=== PATIENT | male | born 1975 | race Caucasian/White ===

== ENCOUNTER 2017-12-21 11:53 | Emergency (ER) | payer SELFPAY ==
[2017-12-21] MEDS ORDERED: traMADol 50 MG Tab PO ONE (12:26)
--- NOTE | 2017-12-21 12:30 | EDM.PDOC ---
ED HPI GENERAL MEDICAL PROBLEM - General Chief Complaint: Lower Extremity Injury/Pain Stated Complaint: LEFT ANKLE PAIN Time Seen by Provider: 12/21/17 11:54 Source of Information: Reports: Patient History Limitations: Reports: No Limitations - History of Present Illness INITIAL COMMENTS - FREE TEXT/NARRATIVE: HISTORY AND PHYSICAL: History of present illness: Patient is a 42-year-old male who presents to the emergency room today with complaints of left lateral ankle pain. 2 days ago the patient states he was getting out of his truck and had stepped out of the cab wrong. He rolled his left ankle which has been increasingly bothersome. 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 He states he has had a fracture of the left ankle 3 times previous. He states he does routinely roll and twist the ankle which requires him to rest and elevated, stating "it usually goes away after 2 days of doing this". He requested to his employer that he could take today and tomorrow off to rest the extremity, employer denied request. Review of systems: As per history of present illness and below otherwise all systems reviewed and negative. Past medical history: As per history of present illness and as reviewed below otherwise noncontributory. Surgical history: As per history of present illness and as reviewed below otherwise noncontributory. Social history: No reported history of drug or alcohol abuse. Family history: As per history of present illness and as reviewed below otherwise noncontributory. Physical exam: General: Well-developed and well-nourished 42-year-old male. Alert and oriented. Nontoxic appearing and in no acute distress. HEENT: Atraumatic, normocephalic, pupils equal and reactive bilaterally, negative for conjunctival pallor or scleral icterus, mucous membranes moist, throat clear, neck supple, nontender, trachea midline. No drooling or trismus noted. No meningeal signs Lungs: Clear to auscultation, breath sounds equal bilaterally, chest nontender. Heart: S1S2, regular rate and rhythm without overt murmur Abdomen: Soft, nondistended, nontender. Negative for masses or hepatosplenomegaly. Negative for costovertebral tenderness. Pelvis: Stable nontender. Genitourinary: Deferred. Rectal: Deferred. Skin: No erythema or open skin. Intact, warm, dry. No lesions or rashes noted. Extremities: Mild tenderness to the lateral malleolus with soft tissue swelling , negative for cords or calf pain. Neurovascular unremarkable. Neuro: Awake, alert, oriented. Cranial nerves II through XII unremarkable. Cerebellum unremarkable. Motor and sensory unremarkable throughout. Exam nonfocal. Notes: X-ray shows no dislocation or fracture. Due to the multiple previous injuries of the affected extremity would like him to follow-up with the orthopedic provider. We'll place him in a stirrup splint with crutches. Supportive care measures were reviewed and discussed. He voices understanding and is agreeable to plan of care. Denies any further questions or concerns at this time. Diagnostics: Left ankle x-ray Therapeutics: Ice, Stirrup Splint, Crutches Prescription: Diclofenac Impression: Left ankle injury Plan: 1. Rest, ice, elevate the affected extremity. Please use the splint and crutches as directed. 2. Tylenol as needed for pain. Diclofenac as directed. Please take with food. Do not take any additional NSAID such as ibuprofen or Aleve for taking this medication. 3. May return to work on 12/23/17 without restrictions. 4. Follow-up with your primary care provider or orthopedic provider next week. Return to ED as needed and as discussed. Definitive disposition and diagnosis as appropriate pending reevaluation and review of above. Duration: Day(s): Left Ankle Pain Score (Numeric/FACES): 6 - Related Data Allergies Allergy/AdvReac Type Severity Reaction Status Date / Time No Known Allergies Allergy Verified 12/21/17 12:27 Home Meds: Home Meds Aspirin 81 mg PO DAILY 12/21/17 [History] Diclofenac Sodium [Voltaren] 75 mg PO BIDMEALS PRN #20 tab.cr 12/21/17 [Rx] metFORMIN [Glucophage XR] 500 mg PO DAILY 12/21/17 [History] Review of Systems - Review of Systems Review Of Systems: ROS reveals no pertinent complaints other than HPI. ED EXAM, GENERAL - Physical Exam Exam: See Below (See dictation) Course - Vital Signs Last Recorded V/S: Last Vital Signs Temp 207.5 F H 12/21/17 12:19 Pulse 76 12/21/17 12:19 Resp 19 12/21/17 12:19 BP 154/90 H 12/21/17 12:19 Pulse Ox 93 L 12/21/17 12:19 - Orders/Labs/Meds Orders: Active Orders 24 hr Category Date Time Status Ankle Min 3V Lt [CR] Stat Exams 12/21/17 11:54 Taken Meds: Medications Discontinued Medications Generic Name Dose Route Start Last Admin Trade Name Freq PRN Reason Stop Dose Admin Tramadol HCl 50 mg 12/21/17 12:26 12/21/17 12:39 Ultram PO 12/21/17 12:27 50 mg ONETIME ONE Administration Departure - Departure Time of Disposition: 13:11 Disposition: Home, Self-Care 01 Clinical Impression: Left ankle injury Qualifiers: Encounter type: initial encounter Qualified Code(s): S99.912A - Unspecified injury of left ankle, initial encounter - Discharge Information Prescriptions: Diclofenac Sodium [Voltaren] 75 mg PO BIDMEALS PRN #20 tab.cr PRN Reason: Pain Instructions: Ankle Sprain, [id number] Referrals: PCP,None [Primary Care Provider] - Forms: ED Department Discharge Additional Instructions: The following information is given to patients seen in the emergency department who are being discharged to home. This information is to outline your options for follow-up care. We provide all patients seen in our emergency department with a follow-up referral. The need for follow-up, as well as the timing and circumstances, are variable depending upon the specifics of your emergency department visit. If you don't have a primary care physician on staff, we will provide you with a referral. We always advise you to contact your personal physician following an emergency department visit to inform them of the circumstance of the visit and for follow-up with them and/or the need for any referrals to a consulting specialist. The emergency department will also refer you to a specialist when appropriate. This referral assures that you have the opportunity for follow-up care with a specialist. All of these measure are taken in an effort to provide you with optimal care, which includes your follow-up. Under all circumstances we always encourage you to contact your private physician who remains a resource for coordinating your care. When calling for follow-up care, please make the office aware that this follow-up is from your recent emergency room visit. If for any reason you are refused follow-up, please contact the [facility] Emergency Department at and asked to speak to the emergency department charge nurse. [facility] [address] [place] [address] [facility] Professional [facility] [address] [place] [address], [address] [place] [address] 1. Rest, ice, elevate the affected extremity. Please use the splint and crutches as directed. 2. Tylenol as needed for pain. Diclofenac as directed. Please take with food. Do not take any additional NSAID such as ibuprofen or Aleve for taking this medication. 3. May return to work on 12/23/17 without restrictions. 4. Follow-up with your primary care provider or orthopedic provider next week. Return to ED as needed and as discussed. - My Orders Last 24 Hours: My Active Orders 12/21/17 11:54 Ankle Min 3V Lt [CR] Stat - Assessment/Plan Last 24 Hours: My Active Orders 12/21/17 11:54 Ankle Min 3V Lt [CR] Stat
--- NOTE | 2017-12-23 10:29 | CR ---
EXAM DATE: 12/21/17 PATIENT'S AGE: 42 Patient: PAT GASPAR Facility: [place], [place] Site . Site : [id number] Study: XRay Extremity Left ankle [id number]/15/2018 12:53:59 PM Ordering Physician: Doctor Patton Final Report: Indication : Three days of pain. No injury reported TECHNIQUE: Three views left ankle. IMPRESSION: Negative. Dictated by Marcus Rosenthal MD @ Dec 21 2017 1:05PM (Electronic Signature) Report Signed by Proxy. KVNG
== END 2017-12-21 13:34 | disposition home or self-care (01) ==
LOC: MW.ED 11:53
DX: S99.912A Unspecified injury of left ankle, initial encounter (principal); Z79.82 Long term (current) use of aspirin; Z79.899 Other long term (current) drug therapy; X50.1XXA Overexertion from prolonged static or awkward postures, initial encounter
CPT/HCPCS: 73610; 99283; A9270; 99282